=== PATIENT | male | born 1960 | race African-American/Black ===

== ENCOUNTER 2020-01-15 18:17 | Emergency (ER) | payer SELFPAY ==
[~2020-01-15] VITALS: Ht 175.3 cm; Wt 133.0 kg
[~2020-01-15 18:17] MED LIST: ASPI-1497 PO; FURO-151 PO; LISI-604 PO
[2020-01-15] MEDS ORDERED: TETANUS, DIPHTHERIA, PERTUSSIS VAC/PF 0.5ML (>7YR OLD) IM ONE (20:45)
[2020-01-15 21:02] VITALS: BP 155/71
== END 2020-01-15 21:19 | disposition home or self-care (01) ==
LOC: ER 18:17
DX: M79.602 Pain in left arm (principal); V49.49XA Driver injured in collision with other motor vehicles in traffic accident, initial encounter; Y93.89 Activity, other specified; Y92.89 Other specified places as the place of occurrence of the external cause; Y99.8 Other external cause status; E11.9 Type 2 diabetes mellitus without complications; I11.0 Hypertensive heart disease with heart failure; I50.9 Heart failure, unspecified
CPT/HCPCS: 71046; 73090; 90471; 90715; 99284